=== PATIENT | female | born 1970 | race Caucasian/White ===

== ENCOUNTER 2017-09-07 11:41 | Emergency (ER) | payer OTHER ==
[2017-09-07 11:44] VITALS: BP 102/71; PULSE 82; TEMP 97.7; BMI 27.4
--- NOTE | 2017-09-07 11:48 | PDOC ---
History of Present Illness - General Chief Complaint: Lightheaded Stated Complaint: DIZZY Time Seen by Provider: 09/07/17 11:43 History Source: Patient, Sibling (Sister) Exam Limitations: No Limitations - History of Present Illness Initial Comments: Pt, with PMH of slipped cervical disc, presents to the ED with nausea, vomiting , weakness, and vertigo x2 days. Pt states that Friday morning (09/05), pt awoke with nausea and light-headedness. She has also been having 3-5 episodes of non- bloody, non-bilious vomit. This morning, she awoke with "the room spinning around her" and felt off-balance as she attempted to walk to the bathroom. The vertigo is worsened by sitting up and turning in bed from side to side. She denies any fevers/chills, changes to vision, loss of muscle strength or sensation, SOB, cough, abdominal pain, diarrhea, dysuria, hematuria, urinary frequency, or leg swelling. Pt states her father had a stroke and from [place] at age 67, brother from [place] at age 29. Her family members have not noticed any changes in behavior, facial drooping, or change in alertness. She has no recent travel or sick contacts. 09/07/17 19:15 Past History - Travel Traveled outside of the country in the last 30 days: No Close contact w/someone who was outside of country & ill: No - Past Medical History Allergies/Adverse Reactions: Allergies Allergy/AdvReac Type Severity Reaction Status Date / Time No Known Allergies Allergy Verified 09/07/17 11:42 Home Medications: Ambulatory Orders Meclizine HCl 25 mg PO DAILY #14 tab.chew 09/07/17 Norgestimate-Ethinyl Estradiol [Trinessa Lo Tablet] 1 each PO DAILY 09/07/17 Cardiac Disorders: No Hx Myocardial Infarction: No COPD: No DVT: No Diabetes: No HTN: No Hypercholesterolemia: No - Surgical History Neurologic Surgery: No - Family Disease History Family Disease History: Diabetes: Grandparents, Heart Disease: Father ([place], stroke), Brother ([place]) - Suicide/Smoking/Psychosocial Hx Smoking Status: Yes Smoking History: Former smoker Have you smoked in the past 12 months: No Number of Cigarettes Smoked Daily: 2 Information on smoking cessation initiated: No Hx Alcohol Use: No Drug/Substance Use Hx: No Substance Use Type: None Review of Systems - Review of Systems Able to Perform ROS?: Yes Is the patient limited Iranian proficient: No Constitutional: Yes: Weakness, Weight Stable. No: Chills, Diaphoresis, Fever, Loss of Appetite, Night Sweats HEENTM: No: Blurred Vision, Recent change in vision, Double Vision, Ear Pain, Hearing Loss, Difficulty Swallowing Respiratory: No: Cough, Orthopnea, Shortness of Breath, SOB with Exertion, Productive cough Cardiac (ROS): No: Chest Pain, Edema, Irregular Heart Rate, Lightheadedness, Palpitations, Syncope, Chest Tightness ABD/GI: Yes: Nausea, Poor Appetite, Poor Fluid Intake (Poor intake since vomiting x2 days.), Vomiting. No: Abdominal Distended, Blood Streaked Bowels, Constipated, Diarrhea : No: Burning, Dysuria, Frequency, Flank Pain, Hematuria, Pain, Urgency Musculoskeletal: Yes: Neck Pain (chronic baseline neck pain, not worse than usual). No: Back Pain, Joint Pain, Muscle Pain, Muscle Weakness Integumentary: No: Bruising, Rash, Sweating Neurological: Yes: Unsteady Gait (Light-headed and unsteady when she woke this morning), Dizziness. No: Headache, Numbness, Paresthesia, Seizure, Tingling, Ataxia Psychiatric: No: Sleep Pattern Change, Change in Appetite Endocrine: No: Increased Urine, Change in Weight Hematologic/Lymphatic: No: Anemia, Blood Clots, Easy Bleeding All Other Systems: Reviewed and Negative *Physical Exam - Vital Signs Last Vital Signs Temp Pulse Resp BP Pulse Ox 97.7 F 82 18 102/71 100 09/07/17 11:41 09/07/17 11:41 09/07/17 11:41 09/07/17 11:41 09/07/17 11:41 - Physical Exam General Appearance: Yes: Nourished, Appropriately Dressed, Mild Distress (Pt having nausea, looks mildly uncomfortable, but can sit up in bed. No current vomiting.) HEENT: positive: EOMI, WILMER, Normal ENT Inspection, Normal Voice, Symmetrical, Pharynx Normal, Hearing Grossly Normal. negative: TMs Normal, Photophobia, Tonsillar Exudate, Nasal Congestion, Rhinorrhea, Sinus Tenderness, TM Bulging ( R TM cloudy, no erythema or bulging) Neck: positive: Trachea midline, Normal Thyroid, Supple. negative: Tender, Rigid, Lymphadenopathy (R), Lymphadenopathy (L) Respiratory/Chest: positive: Lungs Clear, Normal Breath Sounds. negative: Chest Tender, Respiratory Distress, Accessory Muscle Use Cardiovascular: positive: Regular Rhythm, Regular Rate, S1, S2. negative: Edema , JVD, Murmur Vascular Pulses: Dorsalis-Pedis (R): 4+, Doralis-Pedis (L): 4+ Gastrointestinal/Abdominal: positive: Normal Bowel Sounds, Flat, Soft. negative : Tender, Organomegaly, Pulsatile Mass, Guarding, Rebound Lymphatic: negative: Adenopathy, Tenderness Musculoskeletal: positive: Normal Inspection. negative: CVA Tenderness, Decreased Range of Motion Extremity: positive: Normal Capillary Refill, Normal Inspection, Normal Range of Motion, Pelvis Stable. negative: Tender, Pedal Edema, Calf Tenderness Integumentary: positive: Normal Color, Dry, Warm. negative: Rash, Swelling, Bruising Neurologic: positive: Fully Oriented, Alert, Normal Mood/Affect, Normal Response , Motor Strength 5/5, Sensory Deficit (Decreased sensation to light touch on R side (face, arm and body). ), Finger to Nose, Other (Positive romberg with eyes closed. Dizziness with sitting up in bed, and head rotation.). negative: Facial Droop Deep Tendon Reflexes: Knee (L): 3+, Knee (R): 3+, Bicep (L): 3+, Bicep (R): 3+ Heart Score/ECG Review - History History: Slightly suspicious - Electrocardiogram EKG: Normal - Age Age: </= 45 - Risk Factors Risk Factors Heart Score: Yes Positive family hx of cardiac disease Based on the list above the patient has:: No risk factors known - Troponin Troponin: </= normal limit - Score Heart Score - Total: 0 - ECG Intrepretation Rhythm: Regular Rhythm - [place]: Normal - P and LA Prominent R with upright T in V1 (true posterior [place]): No Delta Wave(s) Present: No WPW: No - QRS Poor R Wave Progression: No Q Wave Present: No - ST and T Early Repolarization: No Non Specific ST-T Wave changes: No Flattened T Waves: No Prolonged Q-T Interval: No - ECG Impressions Normal ECG: Yes Non-specific ST Elevation: No Ischemic Changes: No Bradycardia: No Torsades karen Pointes: No WPW: No ED Treatment Course - LABORATORY CBC & Chemistry Diagram: 09/07/17 12:13 09/07/17 12:13 - RADIOLOGY Radiology Studies Ordered: Head CT non-contrast 09/07/17 19:10 Radiograph Interpretation: Non-contrast head CT: No acute fractures, bleeds or ischemia noted. 09/07/17 19:10 Medical Decision Making - Medical Decision Making Pt vitals stable. Ordered ecg, troponin, CBC, CMP, UA, and non-contrast head CT. Pt has family hx of early [place] and stroke (father age 67, brother age 29). Provided 1 L NS and 4 mg PO Zofran. Head CT negative, no increased WBC, no electrolyte abnormalities. Asymptomatic for uti (no dysuria, hematuria, urgency). UA potentially contaminated. Will educate on clean catch and take another sample for culture. Provided 25 mg meclizine for nausea/vomiting. 09/07/17 13:19 (Entered later). Pt dizziness and nausea improved after Meclizine. Given negative CT scan, physical exam, and improvement of symptoms, likely benign positional vertigo. Pt was able to ambulate in ED. Pt will follow-up with neurology and PCP within the next 2 days (provided clinic numbers). Follow-up precautions provided for increased headache, nausea/vomiting, inability to tolerate PO, changes in vision, or any other concerns. Sent 25 mg Meclizine, Qday, 14 tablets to pt pharmacy for nausea & vomiting. 09/07/17 19:11 *DC/Admit/Observation/Transfer Diagnosis at time of Disposition: Peripheral vertigo Qualifiers: Laterality: left Qualified Code(s): H81.392 - Other peripheral vertigo, left ear Vomiting Qualifiers: Vomiting type: unspecified Vomiting Intractability: non-intractable Nausea presence: with nausea Qualified Code(s): R11.2 - Nausea with vomiting, unspecified - Discharge Dispostion Disposition: HOME Condition at time of disposition: Improved Decision to Admit order: No - Prescriptions Prescriptions: Meclizine HCl 25 mg PO DAILY #14 tab.chew - Referrals Referrals: Pramod Mcneill MD [Primary Care Provider] - Errol Espinoza MD [Staff Physician] - - Patient Instructions Printed Discharge Instructions: DI for Benign Paroxysmal Positional Vertigo Additional Instructions: Please follow-up with your primary care physician and the neurology clinic in the next 2 days, as given in your discharge instructions. We will send your urine for a culture to determine if you have a urinary infection. Please return if you have any worsening headache, nausea/vomiting, loss of consciousness, inability to tolerate food or fluids, or any other concern. We provided 25 mg meclizine per day for nausea, vomiting, and vertigo. - Post Discharge Activity
[2017-09-07] MEDS ORDERED: ONDANSETRON 4 MG/2 ML VIAL ONE (12:06)
[2017-09-07] MEDS ORDERED: SODIUM CHLORIDE 1,000 ML IV STA ×2 (12:17→13:55)
[2017-09-07] MEDS ORDERED: ONDANSETRON 4 MG/2 ML VIAL IVPUSH ONE (12:18)
[2017-09-07 12:20] LABS: HCG,QUALITATIVE URINE Negative
--- NOTE | 2017-09-07 12:24 | PDOC ---
Attending Attestation - Resident Resident Name: Vonnie Heard - ED Attending Attestation I have performed the following: I have examined & evaluated the patient, The case was reviewed & discussed with the resident, I agree w/resident's findings & plan, Exceptions are as noted - HPI HPI: 09/07/17 12:40 47-year-old female history of cervical disc disease here today complaining of 24 hours of feeling lightheaded now with vertigo like symptoms. Patient states she has a spinning and lightheaded sensation which is worse with turning her head to the left turning corners and going from a sitting to a standing position. She has had associated nausea and vomiting no focal weakness or numbness never had vertigo before denies any recent injury or trauma no headache no changed her speech or vision did not take anything for her symptoms prior to arrival does have a family history of CVA and CAD - Physicial Exam PE: 09/07/17 12:41 Awake alert no acute distress cranial nerves are intact lungs are clear bilaterally heart is regular without any murmurs rubs or gallops abdomen is soft and nontender extremities are warm and well perfused neuro exam 5 out of 5 all 4 extremities. cranial Nerves intact patient has a positive Erin-Hallpike to the left Fingers to nose normal, [id number] normal, negative Romberg, normal gait alternating hand movements normal skin warm and dry no rash - Medical Decision Making 09/07/17 12:42 Patient with symptoms consistent with peripheral vertigo reproducible symptoms on Lincoln-Hallpike and normal cerebellar exam. Plan CT head due to family history of CVA CBC and electrolytes to rule out anemia or electrolyte abnormality. IV hydration will treat with Zofran and meclizine and reassess 09/07/17 13:54 Patient's symptoms improved following meclizine and IV fluids. UA consistent with dehydration with large ketones and some blood patient had menstruation one week ago appears to be a contaminated urine specimen will repeat a clean catch for a urine culture patient denies any urinary symptoms. We'll DC with prescriptions for meclizine and neurology follow-up Heart Score/ECG Review #1 General ECG Interpretation: Sinus Rhythm, Normal Rate (75), Normal Intervals, No acute ischemic changes
[2017-09-07 12:26] LABS: PH,URINE 7.5 (4.5-8); URINE APPEARANCE HAZY; URINE BILIRUBIN 1+ (NEGATIVE); URINE COLOR Yellow; URINE GLUCOSE (UA) Trace (NEGATIVE); URINE KETONE 2+ (NEGATIVE); URINE LEUK ESTERASE 3+ (NEGATIVE); URINE NITRITE Negative (NEGATIVE); URINE PROTEIN 2+ (NEGATIVE); URINE UROBILINOGEN 0.2 (0.2-1.0)
[2017-09-07 12:29] LABS: AMORP URATES FEW /hpf (NONE SEEN); EPI CELLS FEW /HPF; URINE BACTERIA FEW /hpf (NEGATIVE)
[2017-09-07] MEDS ORDERED: MECLIZINE HCL 25 MG TABLET (FP) PO ONE (12:29)
[2017-09-07 12:39] LABS: BASO % 0.3 % (0-2.0); EOS % 4.9 % (0-4.5); HEMATOCRIT 43.4 % (32.4-45.2); MCH 31.5 pg (25.7-33.7); MCHC 34.5 g/dl (32.0-36.0); MEAN CELL VOLUME 91.1 fl (80-96); MEAN PLT VOLUME 10.3 fl (7.5-11.1); MONO % 4.5 % (3.8-10.2); NEUT % 61.3 % (42.8-82.8); PLATELET COUNT 263 K/MM3 (134-434); RBC 4.77 M/mm3 (3.60-5.2); RDW 11.7 % (11.6-15.6); WHITE BLOOD COUNT 6.8 K/mm3 (4.0-10.8)
[2017-09-07] MEDS ORDERED: MECLIZINE HCL 25 MG TABLET (FP) ONE (12:40)
[2017-09-07 12:43] LABS: ALBUMIN 3.7 g/dl (3.5-5.0); ALK PHOS 39 U/L (32-92); ANION GAP 8 (8-16); BILIRUBIN,TOTAL 1.1 mg/dl (0.2-1.0); BLOOD UREA NITROGEN 10 mg/dl (7-18); CALCIUM 9.1 mg/dl (8.4-10.2); CHLORIDE 100 mmol/L (98-107); CO2 30 mmol/L (22-28); CREATININE 0.7 mg/dl (0.6-1.3); GLUCOSE,RANDOM 82 mg/dl (74-106); POTASSIUM 4.2 mmol/L (3.5-5.1); SGOT/AST 16 U/L (10-42); SGPT/ALT 10 U/L (10-40); SODIUM 138 mmol/L (136-145); TOT PROT 6.9 g/dl (6.4-8.3)
--- NOTE | 2017-09-07 15:00 | EKG ---
Test Reason : Blood Pressure : / mmHG Vent. Rate : 075 BPM Atrial Rate : 075 BPM P-R Int : 194 ms QRS Dur : 086 ms QT Int : 412 ms P-R-T Axes : 065 068 055 degrees QTc Int : 460 ms NORMAL SINUS RHYTHM WITH SINUS ARRHYTHMIA NORMAL ECG WHEN COMPARED WITH ECG OF 02-OCT-2012 00:28, QT HAS LENGTHENED Confirmed by KIMBER AC, SID ([id number]) on 09/07/2017 2:59:43 PM Referred By: MD CAMPBELL Confirmed By:SID QUIROGA MD
== END 2017-09-07 14:26 | disposition home or self-care (01) ==
LOC: FER 11:41
PROC: 3E033GC Introduction of Other Therapeutic Substance into Peripheral Vein, Percutaneous Approach (ICD-10-PCS; principal; 2017-09-07)
PROC: 3E0337Z Introduction of Electrolytic and Water Balance Substance into Peripheral Vein, Percutaneous Approach (ICD-10-PCS; 2017-09-07)
DX: H81.392 Other peripheral vertigo, left ear (principal); R11.2 Nausea with vomiting, unspecified
CPT/HCPCS: 36415; 70450-TC; 80053; 81003; 81015; 84484; 84703; 85025; 87086; 93005; 99283-25; J7030

== ENCOUNTER 2018-02-02 08:22 | Emergency (ER) | payer OTHER ==
[2018-02-02 08:36] VITALS: BP 102/78; PULSE 90; TEMP 98.4; BMI 26.5
[2018-02-02] MEDS ORDERED: methylPREDNISolone NA SUCC 125 MG/2 ML VIAL IM ONE (09:24)
[2018-02-02] MEDS ORDERED: ALBUTEROL SO4 2.5/IPRATROPIUM 0.5 INH SOL 3 ML VIAL.NEB. NEB ONE (09:24)
[2018-02-02] MEDS ORDERED: methylPREDNISolone NA SUCC 125 MG/2 ML VIAL ONE (09:30)
--- NOTE | 2018-02-02 09:30 | PDOC ---
History of Present Illness - General Chief Complaint: Cold Symptoms Stated Complaint: Shortness of Breath Time Seen by Provider: 02/02/18 09:23 History Source: Patient Exam Limitations: Clinical Condition - History of Present Illness Initial Comments: 02/02/18 09:25 Patient with no significant past medication present with complaint of 4 day history of persistent cough, wheezing, chest tightness, malaise and tactile fever. Patient reports she was seen in urgent care who is described where Z-Dami antibiotics and cough medication with referral for chest x-ray per patient did not get a chest x-ray done. Patient reported she cannot find when she put day Z- Dami antibiotics and they prescribed cough medication is not working for her. Patient denies any other symptoms Timing/Duration: other (4 days) Past History - Past Medical History Allergies/Adverse Reactions: Allergies Allergy/AdvReac Type Severity Reaction Status Date / Time No Known Allergies Allergy Verified 09/07/17 11:42 Home Medications: Ambulatory Orders Meclizine HCl 25 mg PO DAILY #14 tab.chew 09/07/17 Norgestimate-Ethinyl Estradiol [Trinessa Lo Tablet] 1 each PO DAILY 09/07/17 Benzonatate [Tessalon Pearls -] 100 mg PO TID PRN #21 capsule 02/02/18 Ipratropium [place] 2 spray NS BID PRN #1 spray 02/02/18 Loratadine 10 mg PO DAILY #10 capsule 02/02/18 Methylprednisolone [Medrol Dose Dami] 4 mg PO ASDIR #21 tablet 02/02/18 Cardiac Disorders: No COPD: No DVT: No Diabetes: No HTN: No Hypercholesterolemia: No - Surgical History Cholecystectomy: No Neurologic Surgery: No - Family Disease History Family Disease History: Diabetes: Grandparents, Heart Disease: Father ([place], stroke), Brother ([place]) - Immunization History Immunization Up to Date: No - Suicide/Smoking/Psychosocial Hx Smoking Status: Yes Smoking History: Never smoked Have you smoked in the past 12 months: No Number of Cigarettes Smoked Daily: 2 Information on smoking cessation initiated: No Hx Alcohol Use: No Drug/Substance Use Hx: No Substance Use Type: None Review of Systems - Review of Systems Able to Perform ROS?: Yes Is the patient limited Icelandic proficient: No Constitutional: Yes: Chills, Malaise HEENTM: Yes: Symptoms Reported, See HPI, Nose Congestion. No: Eye Pain, Blurred Vision, Tearing, Recent change in vision, Double Vision, Cataracts, Ear Pain, Ocular Prothesis, Ear Discharge, Nose Pain, Tinnitus, Nose Bleeding, Hearing Loss, Throat Pain, Throat Swelling, Mouth Pain, Dental Problems, Difficulty Swallowing, Mouth Swelling, Other Respiratory: Yes: Cough, Shortness of Breath, SOB with Exertion, Wheezing. No: Orthopnea, SOB at Rest, Productive cough, Hemoptysis Cardiac (ROS): No: Symptoms Reported, See HPI, Chest Pain, Edema, Irregular Heart Rate, Lightheadedness, Palpitations, Syncope, Chest Tightness, Other ABD/GI: No: Symptoms Reported, See HPI, Abdominal Distended, Abd. Pain w/ defecation, Blood Streaked Bowels, Constipated, Diarrhea, Difficulty Swallowing , Nausea, Poor Appetite, Poor Fluid Intake, Rectal Bleeding, Vomiting, Indigestion, Abdominal cramping, Tarry Stools, Other All Other Systems: Reviewed and Negative *Physical Exam - Vital Signs Last Vital Signs Temp Pulse Resp BP Pulse Ox 98.4 F 90 18 102/78 95 02/02/18 08:34 02/02/18 08:34 02/02/18 08:34 02/02/18 08:34 02/02/18 08:34 - Physical Exam Comments: 02/02/18 09:27 GENERAL: Well developed, well nourished. Awake and alert. No acute distress. HEENT: Normocephalic, atraumatic. PERRLA, EOMI. No conjunctival pallor. Sclera are non-icteric. Moist mucous membranes. Oropharynx is clear. NECK: Supple. Full ROM. CARDIOVASCULAR: Regular rate and rhythm. No murmurs, rubs, or gallops. Distal pulses are 2+ and symmetric. PULMONARY: moderate diffused wheezing. No evidence of respiratory distress. No rales or rhonchi. ABDOMINAL: Soft. Non-tender. Non-distended. No rebound or guarding. No organomegaly. Normoactive bowel sounds. MUSCULOSKELETAL Normal range of motion at all joints. EXTREMITIES: No cyanosis. No clubbing. No edema. No calf tenderness. SKIN: Warm and dry. Normal capillary refill. No rashes. No jaundice. NEUROLOGICAL: Alert, awake, appropriate. Gait is normal without ataxia. PSYCHIATRIC: Cooperative. Good eye contact. Appropriate mood General Appearance: Yes: Nourished, Appropriately Dressed. No: Apparent Distress Moderate Sedation - Procedure Monitoring Vital Signs: Procedure Monitoring Vital Signs Temperature 98.4 F 02/02/18 08:34 Pulse Rate 90 02/02/18 08:34 Respiratory Rate 18 02/02/18 08:34 Blood Pressure 102/78 02/02/18 08:34 O2 Sat by Pulse Oximetry (%) 95 02/02/18 08:34 ED Treatment Course - RADIOLOGY Radiology Studies Ordered: Category Date Time Status CHEST PA & LAT [RAD] Stat Radiology 02/02/18 09:24 Ordered Medical Decision Making - Medical Decision Making 02/02/18 09:28 Patient with no significant past medication present with complaint of persistent cough, shortness of breath, wheezing and malaise for 4 days. Patient seen and another clinic and prescribed medication but has not been taking the medication and did not follow-up for chest x-ray as instructed. Clinical exam significant for moderate diffuse wheezing. Nebulizer treatment with Atrovent and albuterol ordered. Chest x-ray ordered. Solu-Medrol 125 mg IM ordered. Treat based on chest x-ray result 02/02/18 09:49 chest x-ray negative for pneumonia or acute infiltrate. Symptoms likely bronchitis. Patient will be discharge home on Tessalon perles. medrol dami and atrovent nasal spray with PCP follow-up *DC/Admit/Observation/Transfer Diagnosis at time of Disposition: Bronchitis, Cough URI (upper respiratory infection) Qualifiers: URI type: unspecified URI Qualified Code(s): J06.9 - Acute upper respiratory infection, unspecified - Discharge Dispostion Disposition: HOME Condition at time of disposition: Stable Decision to Admit order: No - Prescriptions Prescriptions: Benzonatate [Tessalon Pearls -] 100 mg PO TID PRN #21 capsule PRN Reason: Cough Ipratropium [place] 2 spray NS BID PRN #1 spray PRN Reason: nasal congestion Loratadine 10 mg PO DAILY #10 capsule Methylprednisolone [Medrol Dose Dami] 4 mg PO ASDIR #21 tablet - Referrals Referrals: Laura Mcneill MD [Primary Care Provider] - - Patient Instructions Printed Discharge Instructions: DI for Acute Bronchitis Additional Instructions: Your chest x-ray was normal. Take medications as prescribed. Increase fluid intake. Follow-up with primary care - Post Discharge Activity Forms/Work/School Notes: Back to Work
== END 2018-02-02 10:01 | disposition home or self-care (01) ==
LOC: JERFT 08:22
PROC: 3E0F7GC Introduction of Other Therapeutic Substance into Respiratory Tract, Via Natural or Artificial Opening (ICD-10-PCS; principal; 2018-02-02)
PROC: 3E023GC Introduction of Other Therapeutic Substance into Muscle, Percutaneous Approach (ICD-10-PCS; 2018-02-02)
DX: J06.9 Acute upper respiratory infection, unspecified (principal); J40 Bronchitis, not specified as acute or chronic; R05 Cough
CPT/HCPCS: 71046-TC-FY; 99281-25

== ENCOUNTER 2020-02-07 21:39 | Emergency (ER) | payer OTHER ==
[2020-02-07 21:54] VITALS: BP 130/84; PULSE 85; TEMP 98.6; BMI 28.3
[2020-02-07] MEDS ORDERED: FAMOTIDINE 20 MG/50 ML IVPB 20 MG/50 ML MG IVPB ONE ×2 (22:18→22:32)
[2020-02-07] MEDS ORDERED: MAG HYDROX/AL HYDROX/SIMETH 30 ML UNIT-DOSE CUP PO ONE (22:19)
[2020-02-07 22:35] LABS: BASO % 0.8 % (0-2.0); EOS % 2.6 % (0-4.5); HEMATOCRIT 40.3 % (32.4-45.2); HEMOGLOBIN 13.5 GM/dL (10.7-15.3); LYMPH % 32.5 % (8-40); MCH 31.1 pg (25.7-33.7); MCHC 33.6 g/dl (32.0-36.0); MEAN CELL VOLUME 92.4 fl (80-96); MEAN PLT VOLUME 9.3 fl (7.5-11.1); NEUT % 59.1 % (42.8-82.8); PLATELET COUNT 236 K/MM3 (134-434); RBC 4.36 M/mm3 (3.60-5.2); WHITE BLOOD COUNT 8.5 K/mm3 (4.0-10.0)
[2020-02-07 23:00] LABS: CHLORIDE 105 mmol/L (98-107); POTASSIUM 3.8 mmol/L (3.5-5.1); SODIUM 140 mmol/L (136-145)
[2020-02-07 23:02] LABS: ALBUMIN 3.6 g/dl (3.4-5.0); ANION GAP 7 MMOL/L (8-16); CALCIUM 8.5 mg/dL (8.5-10.1); CO2 28 mmol/L (21-32)
[2020-02-07 23:03] LABS: GLUCOSE,RANDOM 73 mg/dL (74-106)
[2020-02-07 23:05] LABS: SGOT/AST 9 U/L (15-37); SGPT/ALT 12 U/L (13-61)
[2020-02-07 23:06] LABS: CREATININE 0.6 mg/dL (0.55-1.3)
[2020-02-07 23:07] LABS: BILIRUBIN,TOTAL 0.4 mg/dL (0.2-1); TOT PROT 6.9 g/dl (6.4-8.2)
[2020-02-07 23:08] LABS: ALK PHOS 36 U/L (45-117)
== END 2020-02-07 23:43 | disposition left against medical advice (07) ==
LOC: JER 21:39
PROC: 3E033GC Introduction of Other Therapeutic Substance into Peripheral Vein, Percutaneous Approach (ICD-10-PCS; principal; 2020-02-07)
DX: R07.89 Other chest pain (principal)
CPT/HCPCS: 36415; 71046-TC-FY; 80053; 84484; 85025; 93005; 93010; 99285-25

== ENCOUNTER 2020-04-16 10:15 | Emergency (ER) | payer OTHER ==
[2020-04-16 10:20] VITALS: BP 143/101; TEMP 99.4; BMI 28.3
[2020-04-16] MEDS ORDERED: predniSONE 20 MG TABLET (UD) PO ONE (10:48)
[2020-04-16] MEDS ORDERED: ALBUTEROL SO4 2.5/IPRATROPIUM 0.5 INH SOL 3 ML VIAL.NEB. NEB ONE ×2 (10:48→10:51)
[2020-04-16] MEDS ORDERED: predniSONE 20 MG TABLET (UD) ONE (10:51)
[2020-04-16 12:02] VITALS: PULSE 88
== END 2020-04-16 11:45 | disposition home or self-care (01) ==
LOC: FER 10:15
PROC: 3E0F7GC Introduction of Other Therapeutic Substance into Respiratory Tract, Via Natural or Artificial Opening (ICD-10-PCS; principal; 2020-04-16)
DX: J45.901 Unspecified asthma with (acute) exacerbation (principal)
CPT/HCPCS: 71046-TC-FY; 93005; 99284-25; C9803; U0003

== ENCOUNTER 2020-12-07 15:50 | Emergency (ER) | payer OTHER ==
[2020-12-07 16:11] VITALS: BP 131/80; PULSE 85; TEMP 98.9; BMI 27.4
[2020-12-07] MEDS ORDERED: ACETAMINOPHEN 500 MG TABLET (FP) PO ONE (16:19)
[2020-12-07] MEDS ORDERED: ALBUTEROL SO4 HFA INHALER IH ONE ×2 (16:19→16:22)
[2020-12-07] MEDS ORDERED: ONDANSETRON *ODT* 4 MG TABLET SL ONE (16:19)
[2020-12-07] MEDS ORDERED: ACETAMINOPHEN 500 MG TABLET (FP) ONE (16:22)
[2020-12-07] MEDS ORDERED: ONDANSETRON *ODT* 4 MG TABLET ONE (16:23)
== END 2020-12-07 18:10 | disposition home or self-care (01) ==
LOC: FER 15:50
PROC: 3E0F7GC Introduction of Other Therapeutic Substance into Respiratory Tract, Via Natural or Artificial Opening (ICD-10-PCS; principal; 2020-12-07)
DX: J06.9 Acute upper respiratory infection, unspecified (principal)
CPT/HCPCS: 71045-TC-FY; 87804; 99284-25; Q0162

== ENCOUNTER 2021-08-28 23:31 | Emergency (ER) | payer OTHER ==
[2021-08-28] MEDS ORDERED: KETOROLAC TROMETHAMINE 60 MG/2 ML VIAL IM ONE (23:40)
[2021-08-28] MEDS ORDERED: KETOROLAC TROMETHAMINE 60 MG/2 ML VIAL ONE (23:41)
[2021-08-28] MEDS ORDERED: MAG HYDROX/AL HYDROX/SIMETH 30 ML UNIT-DOSE CUP PO ONE (23:42)
[2021-08-28] MEDS ORDERED: MAG HYDROX/AL HYDROX/SIMETH 30 ML UNIT-DOSE CUP ONE (23:43)
[2021-08-28 23:47] VITALS: BP 125/81; PULSE 83; TEMP 98.6; BMI 28.3
== END 2021-08-28 23:53 | disposition home or self-care (01) ==
LOC: FER 23:31
PROC: 3E023GC Introduction of Other Therapeutic Substance into Muscle, Percutaneous Approach (ICD-10-PCS; principal; 2021-08-28)
DX: R07.0 Pain in throat (principal)
CPT/HCPCS: 99284-25

== ENCOUNTER 2024-07-17 17:48 | Emergency (ER) | payer OTHER ==
[2024-07-17 18:04] VITALS: BMI 23.5
[2024-07-17] MEDS ORDERED: FAMOTIDINE 20 MG/50 ML IVPB 20 MG/50 ML MG IVPB ONE (18:07)
[2024-07-17] MEDS ORDERED: ONDANSETRON 4 MG/2 ML VIAL ONE (18:07)
[2024-07-17] MEDS ORDERED: ACETAMINOPHEN INJECTION 100 ML ONE (18:07)
[2024-07-17] MEDS: SODIUM CHLORIDE 1,000 ML IV STA (18:24)
[2024-07-17] MEDS: ACETAMINOPHEN 1000 MG/100 ML BAG IVPB ONE (18:24)
[2024-07-17] MEDS: FAMOTIDINE 20 MG/50 ML IVPB 20 MG/50 ML MG IVPB ONE (18:25)
[2024-07-17] MEDS: ONDANSETRON 4 MG/2 ML VIAL IVPUSH ONE (18:25)
[2024-07-17 18:37] LABS: ABSOLUTE IMMATURE GRANULOCYTES 0.01 x10^3/uL (0.0-0.031); BASOPHILS # 0.01 x10^3/uL (0.01-0.08); EOSINOPHIL % 1.5 % (0.7-5.8); EOSINOPHILS # 0.17 x10^3/uL (0.04-0.36); HEMATOCRIT 43.7 % (34.1-44.9); HEMOGLOBIN 14.9 g/dL (11.2-15.7); MCHC 34.1 g/dl (32.2-35.5); MEAN CELL VOLUME 92.2 fl (79.4-94.8); MEAN PLT VOLUME 10.9 fl (9.4-12.3); MONOCYTE # 0.66 x10^3/uL (0.24-0.86); MONOCYTE % 5.8 % (4.7-12.5); PLATELET COUNT 224 x10^3/uL (182-369); RDW 12.4 % (12.3-16.6)
[2024-07-17 18:48] LABS: ALBUMIN 4.5 g/dl (3.4-5.0); ALK PHOS 61 U/L (45-117); AMYLASE 68 U/L (29-103); ANION GAP 10 mmol/L (4-13); BILIRUBIN,TOTAL 1.4 mg/dl (0.2-1); CALCIUM 9.6 mg/dl (8.5-10.1); CHLORIDE 98 mmol/L (98-107); CO2 30 mmol/L (21-32); CREATININE 0.7 mg/dl (0.6-1.3); GLUCOSE,RANDOM 89 mg/dl (74-106); MAGNESIUM 2.2 mg/dL (1.8-2.4); PHOSPHOROUS 4.4 (2.5-4.9); POTASSIUM 3.3 mmol/L (3.5-5.1); SGOT/AST 15 U/L (15-37); SGPT/ALT 13 U/L (7-52); SODIUM 138 mmol/L (136-145); TOT PROT 7.1 g/dl (6.4-8.2)
[2024-07-17] MEDS ORDERED: THIAMINE HCL 200 MG/2 ML VIAL ONE (18:52)
[2024-07-17] MEDS: THIAMINE HCL 200 MG/2 ML VIAL IVPB ONE (18:56)
[2024-07-17] MEDS: LACTATED RINGERS SOLUTION 1000 ML INFUS.BAG IV ONE (18:56)
[2024-07-17] MEDS ORDERED: MAG HYDROX/AL HYDROX/SIMETH 30 ML UNIT-DOSE CUP ONE (20:43)
[2024-07-17] MEDS: MAG HYDROX/AL HYDROX/SIMETH 30 ML UNIT-DOSE CUP PO ONE (21:21)
[2024-07-17 21:29] VITALS: BP 134/85; PULSE 87; RESP 16; TEMP 97.7
== END 2024-07-17 21:41 | disposition home or self-care (01) ==
LOC: FER 17:48
PROC: 3E033GC Introduction of Other Therapeutic Substance into Peripheral Vein, Percutaneous Approach (ICD-10-PCS; principal; 2024-07-17)
PROC: 3E033NZ Introduction of Analgesics, Hypnotics, Sedatives into Peripheral Vein, Percutaneous Approach (ICD-10-PCS; 2024-07-17)
PROC: 3E033GC Introduction of Other Therapeutic Substance into Peripheral Vein, Percutaneous Approach (ICD-10-PCS; 2024-07-17)
PROC: 3E0337Z Introduction of Electrolytic and Water Balance Substance into Peripheral Vein, Percutaneous Approach (ICD-10-PCS; 2024-07-17)
DX: R11.2 Nausea with vomiting, unspecified (principal)
CPT/HCPCS: 36415; 74177-TC; 80053; 82150; 82550; 83605; 83690; 83735; 84100; 84484; 85025; 93005; 99285-25; J0131; Q9967